=== PATIENT | male | born 1980 | race Caucasian/White ===

== ENCOUNTER 2020-12-31 12:54 | Emergency (ER) | payer OTHER, SELFPAY ==
[2020-12-31 12:55] VITALS: BP 113/74; PULSE 115; RESP 18; TEMP 38.5; O2SAT 96; BMI 23.7
--- NOTE | 2020-12-31 13:20 | RAD_ITS ---
STUDY: X-RAY CHEST REASON FOR EXAM: Male, 40 years old. Fever TECHNIQUE: Single view of the chest was obtained COMPARISON: None. FINDINGS: No consolidative process or pneumothorax. Subtle developing infiltrates in the left lower lobe. IMPRESSION: Subtle developing infiltrates in the left lower lobe likely pneumonia. Electronically Signed: Hilario Brandon MD at 14:27 EST Tel , Service support , RAD/Chest 1 View (Portable)
--- NOTE | 2020-12-31 14:35 | EDS_ITS ---
HPI History of Present Illness Chief Complaint: General Illness Informant: patient Onset/Context/Timing Onset: Weeks (1) Quality: Aching Location: Chest Worsened by: Nothing Relieved by: Motrin Narrative Narrative: Patient presents with fever and cough that has been getting worse over the past week. Patient states he has been coughing up some clear sputum. Patient states his fever has been up to 102.3 at home. Patient also admits to some rhinorrhea. Patient denies any shortness of breath or chest pain. Patient admits to some nausea and diarrhea. Patient denies any vomiting. Patient also admits to some mild arthralgias in his knees. PFSH PFS Medical History no medical history no medical history Home Medications azithromycin 250 mg PO DAILY #4 tablet 12/31/20 [Rx Last Taken Unknown] multivitamin [Daily Multi-Vitamin] 1 tab PO DAILY 12/31/20 [History Last Taken Unknown] Allergy/AdvReac Type Severity Reaction Status Date / Time naproxen AdvReac Vomiting Verified 12/31/20 13:37 Surgical History H/O vasectomy Social History Smoking Status: Never smoker ROS ROS ED Constitutional Constitutional ED: Reports fever(s) and sweats; Denies chills Eyes Eyes: Denies blurry vision or change in vision ENT ENT ED: Reports rhinorrhea; Denies sore throat Cardiovascular Cardiovascular: Denies chest pain or palpitations Respiratory/Chest Respiratory/Chest: Reports cough; Denies dyspnea Gastrointestinal Gastrointestinal: Reports diarrhea and nausea; Denies vomiting Genitourinary Genitourinary ED: Denies dysuria or hematuria Musculoskeletal Musculoskeletal: Reports arthralgias and back pain; Denies neck pain Integumentary Denies abscess or rash Neurologic Neurologic: Reports headache(s); Denies weakness Allergic/Immunologic Allergic/Immunologic ED: Denies mouth swelling or urticaria EXAM Physical Exam Const Vital Signs: 12/31/20 12:55 12/31/20 13:39 Temperature 101.3 F H Temperature Source Temporal Pulse Rate 115 H Respiratory Rate 18 Respiratory Effort Normal Respiratory Depth Normal Respiratory Pattern Normal Blood Pressure 113/74 Blood Pressure Mean 87 Pulse Ox 96 Oxygen Delivery Method Room Air Positive well nourished and well developed General Appearance ED: well developed HEENT Reports moist mucous membranes Neck supple and no JVD Resp normal respiratory effort and clear to auscultation bilaterally Cardio regular rate, regular rhythm and no murmurs GI normal to inspection, nondistended, normoactive bowel sounds and non-tender Palpation: soft Extremity normal to inspection General Extremety ED: Negative for edema or tenderness General Extremity: Negative for edema Neuro oriented x3, CN's II-XII intact bilaterally and no sensory deficits noted Sensorium / Orientation: alert Motor Exam: strength 5/5 throughout Psych mental status grossly normal Skin no rashes or lesions noted MDM MDM MDM Narrative Medical decision making narrative: COVID-19 rapid antigen was obtained was negative. Influenza A and B swabs were obtained were negative. Portable chest x-ray was obtained. There is 1 view. On my interpretation, there is a questionable infiltrate in the left lower lobe. Bony thorax is normal. There is no cardiomegaly. Radiologist also interpreted the x-ray and agrees. Patient was advised of his findings. Patient was given his first dose of Zithromax her e. Patient was given a prescription for Zithromax. Patient was instructed to follow-up with his primary care physician in 5 to 7 days. Patient understood and was agreeable with the plan. All questions were answered. Radiography Chest X-Ray - ED: 1 View, Read by ED Physician, Read by Radiologist and Left Infiltrate Diagnostic Testing: Clinical Impression(s) from Imaging Studies Chest X-Ray 12/31/20 13:20 Discharge Plan Triage Chief Complaint: General Illness ED Provider: Bakari Muro Dx/Rx/DC Orders Clinical Impression: Pneumonia Instructions: ED Pneumonia (Adult) Prescriptions: New azithromycin [azithromycin] 250 MG tablet 250 mg PO DAILY Qty: 4 RF: 0 No Action multivitamin [Daily Multi-Vitamin] Tablet 1 tab PO DAILY RF: 0 Primary Care Provider: NOT,DEFINED Referrals: NOT,DEFINED [Primary Care Provider] - 5-7 Days Disposition Disposition: Home, Self Care
[2020-12-31] MEDS: Acetaminophen 500 MG Tablet 1000 MG PO (14:49)
[2020-12-31] MEDS: Azithromycin 250 MG Tablet 500 MG PO (14:49)
== END 2020-12-31 15:02 | disposition home or self-care (01) ==
LOC: ED 15:01
PROVIDERS: Emergency Provider Emergency Medicine
DX: J18.9 Pneumonia, unspecified organism (principal); Z20.822 Contact with and (suspected) exposure to COVID-19; R19.7 Diarrhea, unspecified; R11.0 Nausea
CPT/HCPCS: 71045; 87426; 87804; 99283

== ENCOUNTER 2022-03-04 10:03 | Emergency (ER) | payer OTHER, SELFPAY ==
[2022-03-04 10:04] VITALS: BP 141/86; PULSE 99; RESP 14; TEMP 36.1; O2SAT 100; BMI 25.0
--- NOTE | 2022-03-04 10:16 | ED.VIS.CHEST ---
HPI History of Present Illness Chief Complaint: Chest Pain Informant: patient Onset/Context/Timing Onset: Days (2-3) Activity at onset: gradual Timing: Intermittent and Lasts (30 minutes) Quality: Positive for Burning and Stabbing Location: Left Parasternal Worsened By: Nothing Relieved By: Nothing Associated Symptoms: Positive for Nausea, Dyspnea and Lightheadedness; Negative for Vomiting, Diaphoresis, Cough, Fever, Acid Reflux or Palpitations Narrative Narrative: Patient presents with chest pain that has been intermittent over the last 2 to 3 days. Patient states when the pain comes on it lasts for approximately 20 to 30 minutes. Patient states it will go away for approximately 1 hour. Patient describes the pain as burning and stabbing. Patient states pain is over the left parasternal area. Patient states nothing makes it better nothing makes it worse. Patient states that today while he was trying to go to the bathroom he became nauseated. Patient did not have any vomiting. Patient felt lightheaded with this. Patient did not pass out or lose consciousness. Patient also states he has been having some pain in his left elbow over the past 2 to 3 days. Patient also admits to some pain in his left ear. Patient denies any fevers or chills. Patient admits to some shortness of breath but denies any cough or fevers. CVD Risk Factors: Positive for Family History 1' </=55; Negative for Hypertension, Diabetes, Hypercholesterolemia or Smoking PE Risk Factors: Negative for Recent Travel/Surgery, Recent Immobilization, Prior DVT or PE, Cancer or OCP + Smoking + >/=35 PFSH PFSH Medical History no medical history no medical history Home Medications azithromycin 250 mg tablet 250 mg PO DAILY #4 TABLETS 12/31/20 [Rx Last Taken Unknown] multivitamin (Daily Multi-Vitamin tablet) 1 tab PO DAILY 12/31/20 [History Last Taken Unknown] Allergy/AdvReac Type Severity Reaction Status Date / Time naproxen AdvReac Vomiting Verified 03/04/22 10:04 Family History (Updated 03/04/22 @ 10:[address] Bakari Muro, ) Brother CAD (coronary artery disease) Surgical History H/O vasectomy Social History Smoking Status: Never smoker ROS ROS ED Constitutional Constitutional ED: Denies chills or fever(s) Eyes Eyes: Denies blurry vision or change in vision ENT ENT ED: Reports ear pain left; Denies rhinorrhea or sore throat Cardiovascular Cardiovascular: Reports chest pain; Denies palpitations Respiratory/Chest Respiratory/Chest: Reports dyspnea; Denies cough Gastrointestinal Gastrointestinal: Reports nausea; Denies abdominal pain or vomiting Genitourinary Genitourinary ED: Denies dysuria or hematuria Musculoskeletal Musculoskeletal: Denies back pain or neck pain Integumentary Denies abscess or rash Neurologic Neurologic: Denies headache(s) or weakness Allergic/Immunologic Allergic/Immunologic ED: Denies mouth swelling or urticaria EXAM Physical Exam Const Vital Signs: 03/04/22 10:04 03/04/22 10:24 03/04/22 10:24 Temperature 96.9 F L Temperature Source Temporal Pulse Rate 99 Respiratory Rate 14 Respiratory Effort Normal Blood Pressure 141/86 H Blood Pressure Mean 104 Pulse Ox 100 Oxygen Delivery Method Room Air Room Air 03/04/22 10:47 Temperature Temperature Source Pulse Rate Respiratory Rate Respiratory Effort Blood Pressure 106/77 Blood Pressure Mean 86 Pulse Ox Oxygen Delivery Method Positive well nourished and well developed General Appearance ED: well developed and NAD HEENT normocephalic and atraumatic Eyes PERRL and EOMs intact bilaterally Neck supple and no JVD Chest Wall palpation of chest normal Chest: Negative for tenderness Resp normal respiratory effort and clear to auscultation bilaterally Effort and Inspection: Negative for respiratory distress Cardio regular rate, regular rhythm and no murmurs GI normal to inspection, nondistended, normoactive bowel sounds, soft to palpation, non-tender and non-distended Extremity normal to inspection General Extremety ED: Negative for edema or tenderness General Extremity: Negative for edema Neuro oriented x3, CN's II-XII intact bilaterally and no sensory deficits noted Sensorium / Orientation: awake and alert Motor Exam: strength 5/5 throughout Psych mental status grossly normal Heart Score History: Moderately Suspicious ECG: Normal Age: </= 45 years Risk Factors: 1 or 2 Risk Factors Troponin: </= Normal Limit Score: 2 MDM MDM MDM Narrative Medical decision making narrative: Patient was given aspirin here. Differential diagnosis includes cardiac ischemia, GERD, pneumonia, pneumothorax, or musculoskeletal etiology. Patient has no PE risk factors and is PERC negative. I do not feel pulmonary embolism is in the differential diagnosis. We will obtain EKG to assess for cardiac dysrhythmia/ischemia. CBC will be obtained to assess for leukocytosis and anemia. Basic metabolic profile will be obtained to assess for renal function and electrolyte abnormalities. Troponin will be obtained to assess for cardiac ischemia. Chest x-ray will be obtained to assess for pneumonia, pneumothorax, cardiomegaly, or other cardiopulmonary processes. Lab Data Lab results narrative: CBC was reviewed and was within normal limits. Basic metabolic profile was reviewed and was within normal limits. High-sensitivity troponin was reviewed and was less than 3. Labs: Laboratory Results - last 24 hr 03/04/22 03/04/22 10:25 10:25 WBC 6.0 RBC 4.70 Hgb 14.3 Hct 42.4 MCV 90.2 MCH 30.4 MCHC 33.7 RDW Std Deviation 40.6 RDW Coeff of Star 12.2 Plt Count 216 MPV 9.9 Immature Gran % (Auto) 0.200 Neut % (Auto) 56.0 Lymph % (Auto) 35.0 [place] % (Auto) 7.0 Eos % (Auto) 1.3 Baso % (Auto) 0.5 Absolute Neuts (auto) 3.4 Absolute Lymphs (auto) 2.11 Nucleated RBC % 0 Sodium 142 Potassium 3.9 Chloride 109 H Carbon Dioxide 28.0 Anion Gap 5 BUN 11 Creatinine 0.98 Estim Creat Clear Calc 120.56 Est GFR (MDRD) Af Amer 108 Est GFR (MDRD) Non-Af 89 BUN/Creatinine Ratio 11.3 Glucose 103 Calcium 9.0 Troponin I High Sens < 3 L Radiography Diagnostic Testing: Clinical Impression(s) from Imaging Studies Chest X-Ray 03/04/22 10:25 IMPRESSION: No acute cardiopulmonary abnormality. Resolution of the previously noted left lower lobe pneumonia. Electronically Signed: Clemente Groves MD at 10:51 EST , Portable 1 view chest x-ray was obtained. On my independent interpretation, lung cespedes are clear. There is normal cardiac silhouette. Bony thorax is normal. There is no acute process noted. Radiologist also interpreted the x-ray and agrees. EKG Initial EKG: Attestation: I personally reviewed and interpreted this EKG as follows: Interpretation: Sinus Rhythm (86) and No Acute Injury Pattern Comments: EKG was obtained. On my interpretation, it showed a normal sinus rhythm with a rate of 86. ME interval, QRS interval, and QTc intervals were all normal. [place] was normal. There are no acute ST or T wave changes. Prior EKG tracings: not available for review Prior: No Prior Treatment and Re-Evaluation Narrative: Patient is feeling better on reevaluation. Patient was advised of his findings. Patient has a HEART score of 2. Patient was advised that this is low risk for acute cardiac event. Patient was instructed to follow-up with his primary care physician in 3 to 5 days for reevaluation. Patient was advised he may need further testing as an outpatient for this. Patient understands and is agreeable with the plan. All questions were answered. Discharge Plan Triage Chief Complaint: Chest Pain ED Provider: Bakari Muro Dx/Rx/DC Orders Clinical Impression: Chest pain of uncertain etiology Instructions: ED Chest Pain, Uncertain Cause Prescriptions: No Action multivitamin [Daily Multi-Vitamin] Tablet 1 tab PO DAILY azithromycin [azithromycin] 250 MG tablet 250 mg PO DAILY Qty: 4 0RF Primary Care Provider: Care Physician,No Primary Referrals: Estrella Lemus MD [Med Staff - [facility]] - 3-5 Days Care Physician,No Primary [Primary Care Provider] - Disposition Disposition: Home, Self Care
--- NOTE | 2022-03-04 10:25 | RAD_ITS ---
EXAM: XR CHEST, 1 VIEW CLINICAL INDICATION: chest pain TECHNIQUE: Frontal view of the chest. This report was created using [employer] report generation technology. COMPARISON: XR Chest dated 12/31/2020 FINDINGS: LUNGS AND PLEURAL SPACES: Previously noted left lower lobe pneumonia has cleared. No pneumothorax. No effusion. HEART: Normal heart size. MEDIASTINUM: No mediastinal or hilar mass. BONES/JOINTS: No acute abnormality. SOFT TISSUES: Normal. RAD/Chest 1 View (Portable) IMPRESSION: No acute cardiopulmonary abnormality. Resolution of the previously noted left lower lobe pneumonia. Electronically Signed: Clemente Groves MD at 10:51 EST ,
--- NOTE | 2022-03-04 10:30 | EKG12_ITS ---
Test Reason : CP Blood Pressure : / mmHG Vent. Rate : 086 BPM Atrial Rate : 086 BPM P-R Int : 148 ms QRS Dur : 094 ms QT Int : 348 ms P-R-T Axes : 077 -03 061 degrees QTc Int : 416 ms Normal sinus rhythm with sinus arrhythmia Normal ECG Confirmed by CORNELIA LISA, XENIA ([id number]), science editor SHEBA FREEMAN ([id number]) on 03/05/2022 10:52:07 AM Referred By: ERICKA Confirmed By:XENIA LOCKE MD
[2022-03-04 10:33] LABS: Absolute Lymphocyte Count 2.11 X10^3/uL (0.83-4.51); Absolute Neutrophil Count 3.4 X10^3/uL (2.0-7.7); Basophil# 0.03 X10^3/uL; Basophil% 0.5 % (0-1); Eosinophil# 0.08 X10^3/uL; Eosinophils% 1.3 % (0-5); Hematocrit 42.4 % (40-54); Hemoglobin 14.3 g/dL (13.0-16.5); Lymphocyte # 2.11 X10^3/ul (0.83-4.51); Mean Corp Hgb Conc 33.7 g/dL (32-36); Mean Corpuscular Hgb 30.4 pg (27.0-32.0); Mean Corpuscular Volume 90.2 fL (80-94); Mean Platelet Vol. 9.9 fl (6.2-12.0); Monocyte# 0.42 X10^3/uL; NRBC Flagged by Analyzer 0 % (0-5); Neutrophil # 3.38 X10^3/uL (2.7-7.7); Platelet Count 216 K/mm3 (150-450); RBC Distribution Width CV 12.2 % (11.6-14.6); RBC Distribution Width SD 40.6 fl (35.1-43.9)
[2022-03-04 10:47] VITALS: BP 106/77
[2022-03-04] MEDS: Aspirin 81 MG TAB.CHEW 324 MG PO (10:47)
[2022-03-04 10:52] LABS: Anion Gap 5 (5-15); BUN 11 mg/dL (7-18); BUN/Creat Ratio 11.3 RATIO (10-20); Chloride 109 mmol/L (98-107); Creatinine, Serum 0.98 mg/dL (0.70-1.30); EST Glomerular Filtration Rate 89 mL/min (>60); Est Glom Filt Rate - Afr Amer 108 mL/min (>60); Estimated Creatinine Clearance 120.56 ml/min; Glucose 103 mg/dL (74-106); Potassium 3.9 mmol/L (3.5-5.1); Sodium Level 142 mmol/L (136-145); Troponin-I HS (w/2H Reflex) < 3 pg/mL (3.0-78.0)
[2022-03-04 11:14] VITALS: BP 104/78; PULSE 78; RESP 16; TEMP 36.6; O2SAT 99
[2022-03-04 12:31] LABS: Reflex Troponin-HS? (from REC) Y
== END 2022-03-04 11:23 | disposition home or self-care (01) ==
PROVIDERS: Emergency Provider Emergency Medicine; Visit Provider Emergency Medicine
DX: R07.9 Chest pain, unspecified (principal); R11.0 Nausea; R06.02 Shortness of breath; H92.02 Otalgia, left ear; R42 Dizziness and giddiness
CPT/HCPCS: 71045; 80048; 84484; 85025; 93005; 99285; A4216

== ENCOUNTER 2023-05-19 20:59 | Emergency (ER) | payer OTHER, SELFPAY ==
[2023-05-19 21:00] VITALS: BP 144/80; PULSE 100; RESP 18; TEMP 37.1; O2SAT 99; BMI 24.3
[2023-05-19 21:25] VITALS: RESP 16
--- NOTE | 2023-05-19 21:39 | CT_ITS ---
STUDY: CT ABDOMEN AND PELVIS WITHOUT CONTRAST REASON FOR EXAM: Male, 43 years old. Kidney Stone RADIATION DOSAGE (If Supplied By Facility): CTDIvol = ( 7.95 ) mGy, DLP = ( 443.19 ) mGycm TECHNIQUE: Transaxial images were obtained from the dome of the diaphragm to the symphysis pubis without oral contrast, and without intravenous contrast. Sagittal and coronal images were reconstructed. Individualized dose optimization techniques were used for this CT. COMPARISON: None. FINDINGS: The visualized lung bases are unremarkable. The visualized portions of the heart are within normal limits. Normal liver. Normal gallbladder and extrahepatic biliary system. Normal spleen. Normal pancreas. Normal bilateral adrenal glands. Normal right kidney. Normal left kidney. Normal visualized stomach. Normal small intestine. Nonspecific diffuse fecal retention within the colon. No evidence for acute appendicitis. Normal abdominal aorta. Normal inferior vena cava. Normal retroperitoneum. Incompletely distended with concentric thickening of the carter of uncertain etiology. Cannot exclude cystitis Normal abdominal wall. Normal osseous structures. CT/Abdomen/Pelvis without Cont IMPRESSION: Concentric thickening of the carter of the bladder possibly due to cystitis. No evidence for renal obstruction or ureteral calculus No evidence for small bowel obstruction or other acute abnormality Electronically Signed: Keaton Bolton MD at 22:23 EDT ,
--- NOTE | 2023-05-19 21:59 | ED.VIS.GI ---
HPI HPI - GI History of Present Illness Chief Complaint: Flank Pain Informant: patient Narrative Narrative: 43-year-old male gradual onset of right flank pain and back coming around the side and down into the groin over the course of the day, it started this morning gradually. Has been colicky. No nausea or vomiting. He has had urinary frequency today but no dysuria. He states for the last couple days he has felt some burning/discomfort in his penis but without any discomfort with urinating and without any changes in urination until today after the pain started. No known history of kidney stones. Had some pain in his right groin like this remotely once that lasted about 2 weeks he was referred to urology and actually had a cystoscopy that was all unremarkable and then the pain resolved. Prior vasectomy. That was remote. PFSH PFSH Medical History no medical history no medical history Home Medications multivitamin (Daily Multi-Vitamin tablet) 1 tab PO DAILY 12/31/20 [History Last Taken Unknown] dicyclomine 10 mg capsule 10 mg PO Q6H PRN PRN IBS 05/19/23 [History Last Taken Unknown] Allergy/AdvReac Type Severity Reaction Status Date / Time Iodinated Contrast Media AdvReac Nausea Verified 05/19/23 21:02 naproxen AdvReac Vomiting Verified 05/19/23 21:02 Family History Brother CAD (coronary artery disease) Surgical History H/O vasectomy Social History Smoking Status: Current every day smoker tobacco type: cigarettes ROS ROS ED Constitutional Constitutional ED: Reports chills; Denies fever(s) Eyes Eyes: Denies change in vision or diplopia ENT ENT ED: Denies rhinorrhea or sore throat Cardiovascular Cardiovascular: Denies chest pain or palpitations Respiratory/Chest Respiratory/Chest: Denies cough or dyspnea Gastrointestinal Gastrointestinal: Reports abdominal pain; Denies diarrhea, nausea or vomiting Genitourinary Genitourinary ED: Reports flank pain and urinary frequency; Denies dysuria or hematuria Musculoskeletal Musculoskeletal: Reports back pain; Denies neck pain Integumentary Denies abscess or rash Neurologic Neurologic: Denies headache(s), paresthesias or weakness Psychiatric Psychiatric: Denies anxiety or suicidal thoughts EXAM Physical Exam Const Vital Signs: 05/19/23 21:00 05/19/23 21:25 05/19/23 23:00 Temperature 98.7 F Temperature Source Temporal Pulse Rate 100 Respiratory Rate 18 16 16 Blood Pressure 144/80 H Blood Pressure Mean 101 Pulse Ox 99 Oxygen Delivery Method Room Air Positive well nourished and well developed General Appearance ED: well developed and NAD HEENT Reports moist mucous membranes normocephalic and atraumatic Eyes PERRL and EOMs intact bilaterally Neck full ROM and supple Resp normal respiratory effort and clear to auscultation bilaterally Cardio regular rate, regular rhythm and no murmurs GI non-tender and non-distended Auscultation: normoactive bowel sounds Palpation: soft Back/Spine no CVA tenderness General Back: other FROM Extremity normal to inspection General Extremety ED: Negative for edema, pulses abnormal or tenderness General Extremity: Negative for edema or pulses abnormal Neuro oriented x3, CN's II-XII intact bilaterally and no sensory deficits noted Sensorium / Orientation: awake and alert Motor Exam: strength 5/5 throughout Skin no rashes or lesions noted and no wounds MDM MDM MDM Narrative Medical decision making narrative: Patient's symptoms sound like ureteral stone and renal colic, however he does not have CVA tenderness, and his CT is negative for urolithiasis. I reviewed the images and report which I agree with. There is circumferential bladder wall thickening which could be consistent with infection but his urinalysis is normal arguing against it. He has his here with him is monogamous, and I do not think he needs to be tested for GC and chlamydia here. He does not have dysuria, so less likely to be a urethritis. His kidney function and blood counts are all normal. There is no sign of appendicitis on CT. Patient was offered Toradol, he declined. At this time I would recommend following up with the urologist that he saw before who he states is Dr. Alexander. Given the normal urinalysis I suspect he may consider cystoscopy given this, this may have been what happened before as I discussed with the patient. Lab Data Attestation: I reviewed the patient's lab results. Labs: Laboratory Results - last 24 hr 05/19/23 05/19/23 21:32 21:50 WBC 7.5 RBC 4.52 L Hgb 14.0 Hct 40.2 MCV 88.9 MCH 31.0 MCHC 34.8 RDW Std Deviation 39.8 RDW Coeff of Star 12.2 Plt Count 220 MPV 9.9 Immature Gran % (Auto) 0.100 Neut % (Auto) 52.3 Lymph % (Auto) 38.9 [place] % (Auto) 7.0 Eos % (Auto) 1.3 Baso % (Auto) 0.4 Absolute Neuts (auto) 3.9 Absolute Lymphs (auto) 2.90 Nucleated RBC % 0 Sodium 139 Potassium 3.6 Chloride 108 H Carbon Dioxide 27.0 Anion Gap 4 L BUN 14 Creatinine 1.00 Estim Creat Clear Calc 115.73 Est GFR (MDRD) Af Amer 104 Est GFR (MDRD) Non-Af 86 BUN/Creatinine Ratio 14.0 Glucose 102 Calcium 9.3 Urine Color Yellow Urine Clarity Clear Urine pH 6.0 Ur Specific [place] 1.015 Urine Protein Negative Urine Glucose (UA) Normal Urine Ketones Negative Urine Occult Blood Negative Urine Nitrite Negative Urine Bilirubin Negative Urine Urobilinogen Normal Ur Leukocyte Esterase Negative Urine RBC 0 SEEN Urine WBC 0 SEEN Ur Squamous Epith Cells 0 SEEN Urine Bacteria 0 SEEN Urine Mucus 0 SEEN Radiography Diagnostic Testing: Clinical Impression(s) from Imaging Studies Abdomen/Pelvis CT 05/19/23 21:39 IMPRESSION: Concentric thickening of the carter of the bladder possibly due to cystitis. No evidence for renal obstruction or ureteral calculus No evidence for small bowel obstruction or other acute abnormality Electronically Signed: Keaton Bolton MD at 22:23 EDT Reading Location ID and State: [facility] / [place] Tel , Service support , Discharge Plan Triage Chief Complaint: Flank Pain ED Provider: Saran Ahumada Dx/Rx/DC Orders Clinical Impression: Acute right flank pain, Urinary frequency Instructions: ED Flank Pain, Uncertain Cause Prescriptions: No Action multivitamin [Daily Multi-Vitamin] Tablet 1 tab PO DAILY dicyclomine 10 mg capsule 10 mg PO Q6H PRN PRN (Reason: IBS) Patient Comments: started two weeks ago, 4 times a day. Primary Care Provider: Care Physician,No Primary Referrals: Dr. Catherine [Other] - As soon as possible Care Physician,No Primary [Primary Care Provider] - Disposition Disposition: Home, Self Care
[2023-05-19 22:16] LABS: Absolute Neutrophil Count 3.9 X10^3/uL (2.0-7.7); Basophil# 0.03 X10^3/uL; Basophil% 0.4 % (0-1); Eosinophils% 1.3 % (0-5); Hematocrit 40.2 % (40-54); Lymphocyte % 38.9 % (19-41); Mean Corp Hgb Conc 34.8 g/dL (32-36); Mean Corpuscular Volume 88.9 fL (80-94); Mean Platelet Vol. 9.9 fl (6.2-12.0); Monocyte# 0.52 X10^3/uL; NRBC Flagged by Analyzer 0 % (0-5); Neutrophil % 52.3 % (47-70); Platelet Count 220 K/mm3 (150-450); RBC Distribution Width CV 12.2 % (11.6-14.6); RBC Distribution Width SD 39.8 fl (35.1-43.9); Red Blood Count 4.52 M/mm3 (4.6-6.2); White Blood Count 7.5 K/mm3 (4.4-11.0)
[2023-05-19 22:25] LABS: Anion Gap 4 (5-15); BUN 14 mg/dL (7-18); Calcium,Total 9.3 mg/dL (8.5-10.1); Chloride 108 mmol/L (98-107); EST Glomerular Filtration Rate 86 mL/min (>60); Est Glom Filt Rate - Afr Amer 104 mL/min (>60); Estimated Creatinine Clearance 115.73 ml/min; Glucose 102 mg/dL (74-106); Potassium 3.6 mmol/L (3.5-5.1); Sodium Level 139 mmol/L (136-145)
[2023-05-19 22:38] LABS: Bacteria 0 SEEN /hpf (None Seen); Mucous, Urine 0 SEEN /hpf (<or=2+); Red Blood Cells-Urine 0 SEEN /hpf (0-5); Squamous Epithelial Cells - UA 0 SEEN /hpf (0-5); White Blood Cells 0 SEEN /hpf (0-5)
[2023-05-19 22:40] LABS: Color, Urine Yellow (Yellow); Glucose, Dipstick Normal (Normal); Ketone-Dipstick Negative (Negative); Leukocyte Esterase-Dipstick Negative /ul (Negative); Nitrite-Dipstick Negative (Negative); Occult Blood-Urine Negative /ul (Negative); Protein-Dipstick Negative (Negative); Specific Gravity, Urine 1.015 (1.002-1.030); Urine Bilirubin Dipstick Negative (Negative); Urine Clarity Clear (Clear); Urine Urobilinogen Normal (Normal)
[2023-05-19 23:00] VITALS: RESP 16
[2023-05-19 23:19] VITALS: BP 107/69; PULSE 67; RESP 16; TEMP 36.7; O2SAT 98
== END 2023-05-19 23:20 | disposition home or self-care (01) ==
PROVIDERS: Emergency Medicine; Emergency Provider Emergency Medicine; Visit Provider Emergency Medicine
DX: R10.9 Unspecified abdominal pain (principal); N32.89 Other specified disorders of bladder; R35.0 Frequency of micturition; M54.9 Dorsalgia, unspecified; F17.210 Nicotine dependence, cigarettes, uncomplicated; Z98.52 Vasectomy status
CPT/HCPCS: 74176; 80048; 81001; 85025; 99283; A4216